=== PATIENT | female | born 1980 | race Caucasian/White ===

== ENCOUNTER 2021-01-09 14:28 | Outpatient (REF) | payer MEDICARE, MEDICAID, SELFPAY ==
[2021-01-09 14:59] LABS: MANUAL DIFF FLAG NO
[2021-01-09 15:02] LABS: Basophils Absolute Auto 0.1 X10*3/uL (0.0-0.2); Basophils Percent Auto 0.5 % (0-2); Eosinophils Absolute Auto 0.1 X10*3/uL (0.0-0.4); Hematocrit 37.7 % (37-47); Hemoglobin 12.5 g/dl (12.0-16.0); Imm Gran Abs Auto 0.03 X10*3/uL (0.00-0.03); Imm Gran Pct Auto 0.3 % (0.0-0.4); Lymphocytes Percent Auto 18.6 % (20-40); Mean Corpuscular HGB Conc 33.2 g/dl (31.0-35.0); Mean Corpuscular Hemoglobin 30.8 pg (27.0-33.0); Mean Corpuscular Volume 92.9 fL (80-98); Mean Platelet Volume 10.1 fL (9.4-12.3); Monocytes Absolute Auto 0.7 X10*3/uL (0.1-1.2); Monocytes Percent Auto 6.3 % (2-11); Neutrophils Absolute Auto 7.8 X10*3/uL (2.0-8.3); Neutrophils Percent Auto 73.3 % (45-73); Platelet Count 269 X10*3/uL (160-400); Red Blood Count 4.06 X10*6/uL (4.20-5.50); Red Cell Distribution Width 12.8 % (11.0-16.0); White Blood Count 10.6 X10*3/uL (4.8-10.8)
[2021-01-09 17:08] LABS: Valproate 13.3 mcg/mL (50.0-100.0)
[2021-01-09 18:36] LABS: Alanine Aminotransferase 18 U/L (0-31); Albumin Level 4.4 g/dL (3.5-5.0); Alkaline Phosphatase 73 U/L (39-117); Aspartate Amino Transferase 19 U/L (5-31); Bilirubin Direct < 0.2 mg/dL (0.0-0.5); Bilirubin Total 0.3 mg/dL (0.0-1.0); Total Protein 6.8 g/dL (6.5-8.0)
== END 2021-01-09 14:29 | disposition home or self-care (01) ==
LOC: HO.LAB 14:28
PROVIDERS: PCP Nurse Practitioner Family; Visit Provider Psychiatry & Neurology Psychiatry
DX: F31.81 Bipolar II disorder (principal)
CPT/HCPCS: 36415; 80076; 80164; 85025

== ENCOUNTER 2021-01-23 08:45 | Outpatient (RCR) | payer MEDICARE, MEDICAID, SELFPAY ==
[2020-12-21 12:21] VITALS: BMI 26.6
--- NOTE | 2020-12-21 12:45 | PC.ADMIT ---
Patient was initially at [facility] program however she stated she was discharged after a few days because she wanted to do a half day to celebrate her sons birthday. Patient self referred to [facility] as she continues to struggle with depression, passive SI, and anxiety with panic attacks. Feeling overwhelmed,and hopeless. Reports several days with in the past month of passive suicidal thoughts. Struggling with PTSD sxs. Patient has a dx of Bipolar I d/o, PTSD, OCD, AVANI. Patient presents with depressed mood and anxious affect. Denied current SI. Patient gave verbal permission to email her a copy of her safety plan. asked if she was feeling unsafe who could she contact and she stated her BF Dilshad. Patient reports medication changes within the past 2 months have contributed to her symptoms. Patient's medications reconciled with patient and patients pharmacy. Call placed to [facility] to reconcile Seroquel which patient stated increased to 100 mg BID.
--- NOTE | 2020-12-21 13:51 | P.HPPSP_ITS ---
HPI Chief Complaint: depression Sources of Information: patient interviewed, chart reviewed and crisis/core team assessment reviewed HPI Narrative: Pt is a 40 year-old woman with hx of Bipolar Disorder who was self referred to PHP due to increased depression, hopeless, helpless, anhedonia and passive suicidal ideation, although pt denies any plan or intent. Pt reports in past year she has been feeling increasingly more isolated, with increased anxiety. She reports poor sleep. She reports hx of multiple medications trials. She is also in process of switching psychiatric providers as pt reports she was told by her OP providers that pt would benefit from second opinion. Pt denies hx of VH/AH. She reports mood swings. She reports some periods of increased energy, but mostly reports changes during the day to day. Past Psychiatric History: Inpt: [facility] 2014 PHP: pt just finished one at [facility]. Suicide attempts: none Past medication trials: trileptal, seroquel, prazosin, latuda, lithium, depakote, prozac (increased agitation/explosive) Medical Evaluation Reviewed: Yes [facility] Medical History (Updated 12/24/20 @ 14:52 by Ivelisse Singh) GERD (gastroesophageal reflux disease) Surgical History (Updated 12/21/20 @ 12:20 by Shyann Ramos RN) H/O spinal fusion Diagnostics Vital Signs (24Hr): Body Mass Index 26.6 Meds/Allergies Allergies Allergies Allergy/AdvReac Type Severity Reaction Status Date / Time No Known Allergies Allergy Verified 12/21/20 12:20 [No Known Allergies*] Mental Status Exam Mental Status Exam Narrative: Appearance: casually groomed, fair hygiene, in NAD Behavior: calm, cooperative Psychomotor: no agitation or retardation noted Speech: clear, normal rate/rhythm/volume, spontaneous TP: linear TC: no signs of psychosis, hopeless/helpless Mood: anxious Affect:brighter than reported mood SI:passive no plan or intent HI:none AH/VH:none Delusions:none Insight/judgment:fair x 2. Memory/cog: alert, oriented x 3. grossly intact to conversational testing. Assessment & Plan Assessment & Plan (1) Bipolar 2 disorder, major depressive episode: Status: Acute Code(s): F31.81 - Bipolar II disorder Assessment and Plan: 1. We discussed continuing Trileptal 600mg po BID; Seroquel 100mg po BID; Latuda 80mg po dinner 2. Increase Prazosin 3mg po qhs as pt reports continued nightmares. Certification I certify that partial hospital treatment is medically necessary due to the symptoms and problems resulting from the patient's mental illness and the failure to treat the patient at the partial hospital level of care would likely result in the patient requiring inpatient psychiatric care which could not be prevented at a less intensive level of care. Telehealth Telehealth Location of provider rendering services: practice address Location of patient: address on file Patient Identification confirmed using: Name, : Yes Telehealth method: video Patient verbally consented to treatment: Yes Patient verbally consented to billing insurance company: Yes Patient informed of any privacy concerns related to visit: Yes Time spent with patient (mins): 30
--- NOTE | 2020-12-25 16:03 | HO.PHPPROGNO ---
Subjective Subjective Date of Service: 12/25/20 Reason For Visit: depression Interim History: Reports an increase in anxiety, feeling overwhelmed and overstimulated with mood cycling to extremes. States this is day 3 of PHP and she continues to struggle. Talking in group makes her feel panic sx, shakey, and dissociative, like I cannot feel a feeling . 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 Identifies her pattern as good ?high for 4 days then having 2 very low days. Night terrors have her up early-attempts to listen to music and work with [employer] to help with focus, grounding and relaxation, Reports by history risperdal caused hyperprolactinemia, Olanzapine was not effective, however Depakote did help. Denies current SE. Fit Bit monitors sleep-sleeps soundly for 4-5 hours, up by 2am 2-5 times then by 3-4 am up for the day. Appetite is within range. Denies SI, plan or intent, Denies medical issues, denies substance use. Medication Compliance: Yes Side effects from medications: No Attending Groups: Yes Review of Systems Review of Systems Yes all other systems are reviewed and are negative (denies) Psychiatric: Reports abnormal sleep pattern, Reports anxiety, Reports depression, Reports mood swings and Reports suicidal ideation (denies SI plan or intent) Mental Status Exam Mental Status Exam Patient Appearance: Appropriate Patient Orientation: Person, Place, Time and Situation Level of Consciousness: Alert Patient Behavior: Talkative Mood Description: Depressed and Anxious Affect Description: Flat Patient Cognition Impaired: No Ability to Follow Directions: Good Speech Pattern: Spontaneous Speech Memory Description: Intact Hallucinations: None Delusions: Not Present Thought Process: Intact Thought Content: positive for Intact Depressive Symptoms: Increased Anxiety, Difficulty Sleeping, Unhappiness, Thoughts of /Suicide (denies SI), Low Self Esteem, Loss of Energy and Difficulty Concentrating Judgement: Good Diagnostics Vital Signs (24Hr): Body Mass Index 26.6 Assessment & Plan Assessment & Plan (1) Bipolar 2 disorder, major depressive episode: Status: Acute Code(s): F31.81 - Bipolar II disorder Assessment and Plan: -Depakote 250 mg HS Certification I certify that partial hospital treatment is medically necessary due to the symptoms and problems resulting from the patient's mental illness and the failure to treat the patient at the partial hospital level of care would likely result in the patient requiring inpatient psychiatric care which could not be prevented at a less intensive level of care. Greater than 50% of the session was spent on counseling and/or coordination of care Discharge Plan Discharge Attending provider: Emery Lynn Medications: New prazosin 1 mg capsule 3 mg PO BEDTIME Qty: 14 RF: 0 Discontinued prazosin 1 mg Capsule 1 - 2 mg PO BEDTIME PRN (Reason: Sleep) RF: 0 No Action calcium 600 mg Capsule 600 mg PO DAILY RF: 0 ibuprofen 800 mg Tablet 800 mg PO DAILY PRN (Reason: Pain) RF: 0 clonazepam 0.5 mg Tablet 0.5 mg PO TID PRN (Reason: Anxiety) RF: 0 omeprazole 40 mg Capsule,Delayed Release(Dr/Ec) 40 mg PO BID RF: 0 quetiapine [Seroquel] 100 mg Tablet 100 mg PO BID RF: 0 vitamin E 400 unit Tablet 450 mg PO DAILY RF: 0 oxcarbazepine [Trileptal] 600 mg Tablet 600 mg PO BID RF: 0 vitamin B complex Capsule 1 cap PO DAILY RF: 0 Latuda 80 mg Tablet 80 mg PO DAILY@1700 RF: 0 Telehealth Telehealth Location of provider rendering services: practice address Location of patient: address on file Patient Identification confirmed using: Name, : Yes Telehealth method: video Patient verbally consented to treatment: Yes Patient verbally consented to billing insurance company: Yes Patient informed of any privacy concerns related to visit: Yes Time spent with patient (mins): 15
--- NOTE | 2020-12-26 14:13 | PC.NURSE ---
Spoke to patients prescriber Amanda Farris who stated she will continue to prescribe medications for patient until she has an appointment with a new prescriber. Patient is willing to go to an agency for treatment , Radha Mims is aware. Amanda reports that patient has told her that she has been vomiting on and off for 3 years and Amanda thinks medication is contributing to this and thus has tried to decrease patients medications however when this happens patient goes to [facility] and is put back on. Patient recently at [facility] at [facility] for a few days and was put back on Seroquel 100 mg BID. She was previously on Seroquel 150 mg daily. Patient left [facility] after 5 days as she knew an employee who worked there thus did not feel comfortable. Patient wanted to be put back on Seroquel as she feels the medication is helpful. In addition, patient was referred by her PCP to a GI doctor to f/u however patient did not go to the appointment. Spoke to patient and confirmed that she has been vomiting on and off x 3 years and related this to stress and anxiety, did not f/u with GI doctor. She agreed with the above plan to transition to an agency for treatment and agreed staff could call her PCP's office to re-refer patient to a GI specialist. Michael Santa APRN and Ivelisse Singh NP are aware.
--- NOTE | 2020-12-31 12:42 | PC.NURSE ---
Called Cassy and let her know that we need to cancel groups today as we lost power. In addition, patient has an appointment with her PCP Dr Nelly Zamora On January 04, 2021 at 1530 to f/u on patient c/o vomiting on and off for the past 3 years and to review the need to f/u with a GI referral.
--- NOTE | 2021-01-02 14:18 | HO.PHPPROGNO ---
Subjective Subjective Date of Service: 01/02/21 Reason For Visit: depression Interim History: The patient reported that the prescriber has just added Depakote last week on top of all her medications. Historically, she did well with Depakote. She reported that she is doing well with the current regimen. Medication Compliance: Yes Side effects from medications: No Review of Systems Review of Systems Yes all other systems are reviewed and are negative Mental Status Exam Mental Status Exam Patient Appearance: Well Grooomed Patient Orientation: Person, Place, Time and Situation Level of Consciousness: Awake and Appropriate Patient Behavior: Appropriate and Cooperative Mood Description: Calm Affect Description: Calm Patient Cognition Impaired: No Ability to Follow Directions: Good Speech Pattern: Clear Memory Description: Intact Hallucinations: None Delusions: Not Present Thought Process: Intact Thought Content: positive for Circumstantial Judgement: Fair Diagnostics Vital Signs (24Hr): Body Mass Index 26.6 Assessment & Plan Certification I certify that partial hospital treatment is medically necessary due to the symptoms and problems resulting from the patient's mental illness and the failure to treat the patient at the partial hospital level of care would likely result in the patient requiring inpatient psychiatric care which could not be prevented at a less intensive level of care. Greater than 50% of the session was spent on counseling and/or coordination of care Discharge Plan Discharge Attending provider: Emery Lynn Medications: New prazosin 1 mg capsule 3 mg PO BEDTIME Qty: 14 RF: 0 divalproex [Depakote] 250 mg tablet,delayed release (DR/EC) 250 mg PO BEDTIME Qty: 7 RF: 0 Discontinued prazosin 1 mg Capsule 1 - 2 mg PO BEDTIME PRN (Reason: Sleep) RF: 0 No Action calcium 600 mg Capsule 600 mg PO DAILY RF: 0 ibuprofen 800 mg Tablet 800 mg PO DAILY PRN (Reason: Pain) RF: 0 clonazepam 0.5 mg Tablet 0.5 mg PO TID PRN (Reason: Anxiety) RF: 0 omeprazole 40 mg Capsule,Delayed Release(Dr/Ec) 40 mg PO BID RF: 0 quetiapine [Seroquel] 100 mg Tablet 100 mg PO BID RF: 0 vitamin E 400 unit Tablet 450 mg PO DAILY RF: 0 oxcarbazepine [Trileptal] 600 mg Tablet 600 mg PO BID RF: 0 vitamin B complex Capsule 1 cap PO DAILY RF: 0 Latuda 80 mg Tablet 80 mg PO DAILY@1700 RF: 0 Telehealth Telehealth Location of provider rendering services: practice address Location of patient: address on file Patient Identification confirmed using: Name, : Yes Telehealth method: video Patient verbally consented to treatment: Yes Patient verbally consented to billing insurance company: Yes Patient informed of any privacy concerns related to visit: Yes Time spent with patient (mins): 15
--- NOTE | 2021-01-07 12:07 | PC.NURSE ---
Spoke with pt to try to offer support and service ideas due to family struggles.
--- NOTE | 2021-01-07 13:25 | HO.PHPPROGNO ---
Subjective Subjective Date of Service: 01/07/21 Reason For Visit: depression Interim History: The patient reported improvement of her mood on the subtherapeutic dose of DEpakote 250 mg po qhs. She agreed to do bloodwork and reasses Medication Compliance: Yes Side effects from medications: No Review of Systems Review of Systems Yes all other systems are reviewed and are negative Mental Status Exam Mental Status Exam Patient Appearance: Well Grooomed Patient Orientation: Person, Place and Time Level of Consciousness: Awake Patient Behavior: Appropriate Mood Description: Calm Affect Description: Constricted Patient Cognition Impaired: No Ability to Follow Directions: Good Speech Pattern: Clear Memory Description: Intact Hallucinations: None Delusions: Not Present Thought Process: Goal Oriented Thought Content: positive for Circumstantial Judgement: Fair Diagnostics Vital Signs (24Hr): Body Mass Index 26.6 Assessment & Plan Assessment & Plan (1) Bipolar 2 disorder, major depressive episode: Status: Acute Code(s): F31.81 - Bipolar II disorder Assessment and Plan: Continue with same treatment VALP and LFT NATY Certification I certify that partial hospital treatment is medically necessary due to the symptoms and problems resulting from the patient's mental illness and the failure to treat the patient at the partial hospital level of care would likely result in the patient requiring inpatient psychiatric care which could not be prevented at a less intensive level of care. Greater than 50% of the session was spent on counseling and/or coordination of care Discharge Plan Discharge Attending provider: Emery Lynn Medications: Continued prazosin 1 mg capsule 3 mg PO BEDTIME Qty: 90 RF: 0 divalproex [Depakote] 250 mg tablet,delayed release (DR/EC) 250 mg PO BEDTIME Qty: 30 RF: 0 Discontinued prazosin 1 mg Capsule 1 - 2 mg PO BEDTIME PRN (Reason: Sleep) RF: 0 No Action calcium 600 mg Capsule 600 mg PO DAILY RF: 0 ibuprofen 800 mg Tablet 800 mg PO DAILY PRN (Reason: Pain) RF: 0 clonazepam 0.5 mg Tablet 0.5 mg PO TID PRN (Reason: Anxiety) RF: 0 omeprazole 40 mg Capsule,Delayed Release(Dr/Ec) 40 mg PO BID RF: 0 quetiapine [Seroquel] 100 mg Tablet 100 mg PO BID RF: 0 vitamin E 400 unit Tablet 450 mg PO DAILY RF: 0 oxcarbazepine [Trileptal] 600 mg Tablet 600 mg PO BID RF: 0 vitamin B complex Capsule 1 cap PO DAILY RF: 0 Latuda 80 mg Tablet 80 mg PO DAILY@1700 RF: 0 Telehealth Telehealth Location of provider rendering services: practice address Location of patient: address on file Patient Identification confirmed using: Name, : Yes Telehealth method: video Patient verbally consented to treatment: Yes Patient verbally consented to billing insurance company: Yes Patient informed of any privacy concerns related to visit: Yes Time spent with patient (mins): 15
--- NOTE | 2021-01-15 13:19 | HO.PHPPROGNO ---
Subjective Subjective Date of Service: 01/15/21 Reason For Visit: depression Interim History: The patient reported stable mood even though that she is on a subtherapeutic dose of Depakote. VALP came back on 0.13. We discussed options and she agreed to increase it up to 500 mg at hs. Medication Compliance: Yes Side effects from medications: No Attending Groups: Yes Review of Systems Review of Systems Yes all other systems are reviewed and are negative Mental Status Exam Mental Status Exam Patient Appearance: Well Grooomed Patient Orientation: Person, Place, Time and Situation Level of Consciousness: Awake and Appropriate Patient Behavior: Appropriate Mood Description: Calm Affect Description: Appropriate Patient Cognition Impaired: No Ability to Follow Directions: Good Speech Pattern: Clear Memory Description: Intact Hallucinations: None Delusions: Not Present Thought Process: Goal Oriented Thought Content: positive for Intact Judgement: Fair Diagnostics Vital Signs (24Hr): Body Mass Index 26.6 Labs Labs: VALP on 0.13, LFT wnl, CBC wnl Assessment & Plan Assessment & Plan (1) Bipolar 2 disorder, major depressive episode: Status: Acute Code(s): F31.81 - Bipolar II disorder Assessment and Plan: 1. Increase Depakote ER 500 mg po qhs 2. Next visit VALP Certification I certify that partial hospital treatment is medically necessary due to the symptoms and problems resulting from the patient's mental illness and the failure to treat the patient at the partial hospital level of care would likely result in the patient requiring inpatient psychiatric care which could not be prevented at a less intensive level of care. Greater than 50% of the session was spent on counseling and/or coordination of care Discharge Plan Discharge Attending provider: Emery Lynn Medications: New divalproex [Depakote ER] 500 mg tablet extended release 24 hr 500 mg PO DAILY Qty: 14 RF: 0 Continued prazosin 1 mg capsule 3 mg PO BEDTIME Qty: 90 RF: 0 Discontinued prazosin 1 mg Capsule 1 - 2 mg PO BEDTIME PRN (Reason: Sleep) RF: 0 No Action calcium 600 mg Capsule 600 mg PO DAILY RF: 0 ibuprofen 800 mg Tablet 800 mg PO DAILY PRN (Reason: Pain) RF: 0 clonazepam 0.5 mg Tablet 0.5 mg PO TID PRN (Reason: Anxiety) RF: 0 omeprazole 40 mg Capsule,Delayed Release(Dr/Ec) 40 mg PO BID RF: 0 quetiapine [Seroquel] 100 mg Tablet 100 mg PO BID RF: 0 vitamin E 400 unit Tablet 450 mg PO DAILY RF: 0 oxcarbazepine [Trileptal] 600 mg Tablet 600 mg PO BID RF: 0 vitamin B complex Capsule 1 cap PO DAILY RF: 0 Latuda 80 mg Tablet 80 mg PO DAILY@1700 RF: 0 Telehealth Telehealth Location of provider rendering services: practice address Location of patient: address on file Patient Identification confirmed using: Name, : No Telehealth method: video Patient verbally consented to treatment: Yes Patient verbally consented to billing insurance company: Yes Patient informed of any privacy concerns related to visit: No Time spent with patient (mins): 15
--- NOTE | 2021-01-23 13:05 | PC.NURSE ---
Reviewed patient discharge medications with patient. Faxed d/c medication list to patients prescriber Amanda Farris including lab results. Lab results faxed to PCP. Patient had intake appointment with [facility] and she is transitioning to [facility] for all psychiatric services including prescriber services.
--- NOTE | 2021-01-23 13:43 | HO.PHPPROGNO ---
Subjective Subjective Date of Service: 01/23/21 Reason For Visit: depression Interim History: The patient is finishing her PHP, she feels much better and she thinks that she has benefit from the groups and the slow titration of Depakote. She reported that her regular prescriber will continue the depakote. No safety issues Medication Compliance: Yes Side effects from medications: No Attending Groups: Yes Review of Systems Review of Systems Yes all other systems are reviewed and are negative Mental Status Exam Mental Status Exam Patient Appearance: Well Grooomed Patient Orientation: Person, Place, Time and Situation Level of Consciousness: Awake and Appropriate Patient Behavior: Appropriate Mood Description: Calm Affect Description: Appropriate Patient Cognition Impaired: No Ability to Follow Directions: Good Speech Pattern: Clear Memory Description: Intact Hallucinations: None Delusions: Not Present Thought Process: Goal Oriented Thought Content: positive for Intact Judgement: Fair Diagnostics Vital Signs (24Hr): Body Mass Index 26.6 Assessment & Plan Assessment & Plan (1) Bipolar 2 disorder, major depressive episode: Status: Acute Code(s): F31.81 - Bipolar II disorder Assessment and Plan: The patient is an adult female with Bipolar Type 2, highly functional at baseline, referred to [facility] for medication management. She agreed to add Depakote and so far, her mood is more stable. Certification I certify that partial hospital treatment is medically necessary due to the symptoms and problems resulting from the patient's mental illness and the failure to treat the patient at the partial hospital level of care would likely result in the patient requiring inpatient psychiatric care which could not be prevented at a less intensive level of care. Greater than 50% of the session was spent on counseling and/or coordination of care Discharge Plan Discharge Attending provider: Emery Lynn Medications: Continued prazosin 1 mg capsule 3 mg PO BEDTIME Qty: 90 RF: 0 divalproex [Depakote ER] 500 mg tablet extended release 24 hr 500 mg PO DAILY Qty: 30 RF: 1 Discontinued prazosin 1 mg Capsule 1 - 2 mg PO BEDTIME PRN (Reason: Sleep) RF: 0 No Action calcium 600 mg Capsule 600 mg PO DAILY RF: 0 ibuprofen 800 mg Tablet 800 mg PO DAILY PRN (Reason: Pain) RF: 0 clonazepam 0.5 mg Tablet 0.5 mg PO TID PRN (Reason: Anxiety) RF: 0 omeprazole 40 mg Capsule,Delayed Release(Dr/Ec) 40 mg PO BID RF: 0 quetiapine [Seroquel] 100 mg Tablet 100 mg PO BID RF: 0 vitamin E 400 unit Tablet 450 mg PO DAILY RF: 0 oxcarbazepine [Trileptal] 600 mg Tablet 600 mg PO BID RF: 0 vitamin B complex Capsule 1 cap PO DAILY RF: 0 Latuda 80 mg Tablet 80 mg PO DAILY@1700 RF: 0 Telehealth Telehealth Location of provider rendering services: practice address Location of patient: address on file Patient Identification confirmed using: Name, : Yes Telehealth method: video Patient verbally consented to treatment: Yes Patient verbally consented to billing insurance company: Yes Patient informed of any privacy concerns related to visit: No Time spent with patient (mins): 15
--- NOTE | 2021-01-23 14:50 | PC.NURSE ---
Left message with clients therapist Gisele cope re clients discharge
== END 2021-01-24 08:06 ==
LOC: HO.PHPA 08:45
PROVIDERS: Visit Provider Psychiatry & Neurology Psychiatry
DX: F31.81 Bipolar II disorder (principal); Z79.899 Other long term (current) drug therapy
CPT/HCPCS: 90791; 90853; 99213

== ENCOUNTER 2022-02-13 09:45 | Outpatient (RCR) | payer MEDICARE, MEDICAID, SELFPAY ==
[2022-01-13 11:49] VITALS: BMI 25.7
--- NOTE | 2022-01-13 12:10 | PC.ADMIT ---
Patient is a 41 year old female who has a diagnosis of Bipolar disorder, current mood depressed who self referred to PHP d/t increased depression with passive SI, increased anxiety with panic attacks, and PTSD symptoms. Patient reports feeling overwhelmed with issues with her step son and has an upcoming court date regarding her step son. Patient reports that her step son triggers her past trauma history. Patient also stated she is in the process of buying a new house and is moving at the end of April which she finds stressful. Patient also stated she is dealing with health issues related to [place] Esophagus and has upcoming appointments related to this and possible upcoming throat surgery which is also stressful. Patient has been to [facility] in the past and found it helpful. Patient is alert and oriented x4. calm and cooperative. Presents with depressed mood, tearful at times. Emailed patient a copy of her safety plan and smoking cessation materials. Patient's medications reconciled with patient and patient's pharmacy. patient reports taking medications as prescribed.
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
--- NOTE | 2022-01-14 07:21 | PC.NURSE ---
Case opened in treatment team
--- NOTE | 2022-01-15 08:30 | PC.NURSE ---
The client called out . She states that yesterday was stressful and she has a migraine headache
--- NOTE | 2022-01-22 11:16 | P.PNPSP_ITS ---
Subjective Subjective Date of Service: 01/22/22 Reason For Visit: PTSD,depression Guardianship: No Medical Problems Affecting Mental Status: No Interim History: Describes mood as ?I have been quite emotional, ranging from feeling overwhelmed , to completely shutting down ?. Denies SI/HI. Reports forcing herself to process trauma from the past, and current situation. Reports she feels safe. does not wish to have any medication changes at this time. Medication Compliance: Yes Side effects from medications: No Attending Groups: Yes Review of Systems Acute medical concerns: No Medical Review of Systems: unchanged Review of Systems Review of Systems Yes all other systems are reviewed and are negative Constitutional: Reports no additional constitutional complaints Mental Status Exam Mental Status Exam Narrative: A&OX4, in NAD. Describes mood as ranging from overwhelming to completely shutting down . Denies SI/HI. Patient Appearance: Well Grooomed and Appropriate Patient Orientation: Person, Place, Time and Situation Level of Consciousness: Awake, Appropriate and Alert Patient Behavior: Appropriate, Cooperative and Good Eye Contact Mood Description: Depressed and Anxious Affect Description: Depressed and Anxious Patient Cognition Impaired: No Ability to Follow Directions: Excellent Speech Pattern: Clear, Appropriate and Coherent Memory Description: Intact Hallucinations: None Delusions: Not Present Thought Process: Intact Thought Content: positive for Intact Depressive Symptoms: Increased Anxiety, Increased Irritability, Difficulty Sleeping, Crying Spells, Loss of Int. in Activity, Feelings of Worthlessness, Hopelessness, Unhappiness, Increased Fatigue and Loss of Energy Judgement: Fair Diagnostics Vital Signs (24Hr): BMI result Body Mass Index 25.7 Assessment & Plan Assessment & Plan (1) Bipolar 2 disorder, major depressive episode: Status: Acute Code(s): F31.81 - Bipolar II disorder Assessment and Plan: Describes mood as ?I have been quite emotional, ranging from feeling overwhelmed, to completely shutting down ?. Reports that topics in groups have brought up past trauma as well as current situation. She reports that for a long time she had ?been shut down ?. She states that she is currently trying to pop process her feelings while in the safety of [facility]. She states that this was the intent of her participating in partial, so that she can work through these and be able to function ?without wearing a mask ?. Denies SI/HI. Reports she feels safe. does not wish to have any medication changes at this time, feels they are adequate. Patient was encouraged to reach out if needs any assistance. Medication review/education provided. (2) Post-traumatic stress disorder, chronic: Status: Acute Code(s): F43.12 - Post-traumatic stress disorder, chronic (3) Generalized anxiety disorder: Status: Acute Code(s): F41.1 - Generalized anxiety disorder Plan 1. Continue with current PHP plan of care. 2. Continue with current medication regimen as prescribed. 3. Follow-up as per protocol. Patient educated on: diagnosis, medication risk/benefits and therapeutic strategies Informed Consent: understands Reason for contiued partial hosp. stay Substantial Risk for: harm to self, inability to function and med/psych decompensation Certification I certify that partial hospital treatment is medically necessary due to the symptoms and problems resulting from the patient's mental illness and the failure to treat the patient at the partial hospital level of care would likely result in the patient requiring inpatient psychiatric care which could not be prevented at a less intensive level of care. I spent minutes with the patient and/or on the patient floor today, greater than?50% of which was spent counseling/coordinating care. Discharge Plan Discharge Attending provider: Sam Lipscomb Medications: No Action calcium 600 mg Capsule 600 mg PO DAILY 0RF ibuprofen 800 mg Tablet 800 mg PO DAILY PRN (Reason: Pain) 0RF Label Comments: Patient stated she takes once a week. clonazepam 0.5 mg Tablet 0.5 mg PO TID PRN (Reason: Anxiety) 0RF quetiapine [Seroquel] 100 mg Tablet 100 mg PO BID 0RF vitamin E 400 unit Tablet 450 mg PO DAILY 0RF oxcarbazepine [Trileptal] 600 mg Tablet 600 mg PO BID 0RF vitamin B complex Capsule 1 cap PO DAILY 0RF prazosin 1 mg capsule 3 mg PO BEDTIME Qty: 90 0RF famotidine 40 mg Tablet 40 mg PO BEDTIME 0RF sumatriptan succinate 50 mg Tablet See Rx Instructions .ROUTE .COMPLEX PRN (Reason: Migraine Headache) 0RF Rx Instructions: 1-2 tabs onset of migraine. May Repeat in 2 hours if ineffective. Do not exceed 4 doses per 24 hrs. Max 9 tabs in 30 days. divalproex [Depakote] 125 mg Tablet,Delayed Release (Dr/Ec) 375 mg PO BEDTIME 0RF Rx Instructions: Take 3 tabs at Bedtime. omeprazole 20 mg Capsule,Delayed Release(Dr/Ec) 20 mg PO BID 0RF albuterol sulfate 90 mcg/actuation Hfa Aerosol Inhaler 2 puff INHALATION Q4H PRN (Reason: Shortness Of Breath) 0RF Latuda 60 mg Tablet 60 mg PO QPM 0RF Rx Instructions: must administer with food (at least 350 calories). Take at dinnertime. baclofen 5 mg Tablet 5 mg PO TID 0RF Telehealth Telehealth Location of provider rendering services: practice address Location of patient: address on file Patient Identification confirmed using: Name, : Yes Telehealth method: video Patient verbally consented to treatment: Yes Patient verbally consented to billing insurance company: Yes Patient informed of any privacy concerns related to visit: Yes Minutes spent on Phone/Video with Pt.: 15
--- NOTE | 2022-01-24 12:37 | PC.NURSE ---
I spoke with the clients therapist Kim DAS re clients progress in the program and length of the treatment. Kim will be calling [facility] to set up an appointment for post discharge
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
--- NOTE | 2022-02-06 12:13 | PC.NURSE ---
The client left the first group and called to tell me she is too overwhelmed to stay the rest of the day. We discussed using skills and she agreed to take a nap with her weighted blanket. She denies any safety concerns. She will also be calling to touch base with her therapist. She states that she will be in tomorrow.
--- NOTE | 2022-02-12 10:55 | HO.PHPPROGNO ---
Subjective Subjective Date of Service: 02/12/22 Reason For Visit: PTSD,depression Guardianship: No Medical Problems Affecting Mental Status: No Interim History: Mood: actually pretty good . Feels ready to leave [facility], I'm not at 100%, but I have the motivation to keep going forward . Plans to resume old dose of prazosin 3mg at bedtime rather than 4mg. No SI/HI, no safety concerns. Medication Compliance: Yes Side effects from medications: No Attending Groups: Yes Review of Systems Acute medical concerns: No Medical Review of Systems: unchanged Review of Systems Review of Systems Yes all other systems are reviewed and are negative Constitutional: Reports no additional constitutional complaints Mental Status Exam Mental Status Exam Narrative: NAD. Stable mood/affect. Denies SI/HI. Patient Appearance: Well Grooomed and Appropriate Patient Orientation: Person, Place, Time and Situation Level of Consciousness: Awake, Appropriate and Alert Patient Behavior: Appropriate, Cooperative and Good Eye Contact Mood Description: Appropriate Affect Description: Calm and Appropriate Patient Cognition Impaired: No Ability to Follow Directions: Excellent Speech Pattern: Clear, Appropriate and Coherent Memory Description: Intact Hallucinations: None Delusions: Not Present Thought Process: Intact Thought Content: positive for Intact Depressive Symptoms: Increased Anxiety Judgement: Good Diagnostics Vital Signs (24Hr): BMI result Body Mass Index 25.7 Assessment & Plan Assessment & Plan (1) Bipolar 2 disorder, major depressive episode: Status: Acute Code(s): F31.81 - Bipolar II disorder Assessment and Plan: Mood: actually pretty good . States that she feels less anxious, less depressed. States that she understands she is not 100% where she would prefer to be at this time, she says that she has the motivation out acute going forward. Reports that she has noticed improvement in her relationship with her significant other, stating that she has been able to speak up for herself more, ?expressing my feelings more ?. She describes her relationship with her partner is healthy, and states that he has been more receptive to listening about her feelings. States that she feels her children are also doing better, as her symptoms have improved. Feels ready to leave [facility]. Plans to resume old dose of prazosin 3mg at bedtime rather than 4mg. No SI/HI, no safety concerns. Able to express hope for the future. (2) Post-traumatic stress disorder, chronic: Status: Acute Code(s): F43.12 - Post-traumatic stress disorder, chronic Assessment and Plan: Reports symptoms of PTSD, including nightmares, irritability, hyperarousal and hypervigilance have improved. Plans to resume past dose of prazosin 3 mg at bedtime, as she feels she no longer needs the 4 mg. (3) Generalized anxiety disorder: Status: Acute Code(s): F41.1 - Generalized anxiety disorder Assessment and Plan: Was able to verbalize some anticipatory anxiety regarding her upcoming move this summer into their new home. She reports however that she feels ready to meet the challenges of this. She states she also knows where to turn if she starts to feel herself becoming overwhelmed again. She states that she would be open to returning if needed here. Plan 1. Patient appears stable for discharge from [facility] at this time. 2. Patient to follow-up without patient providers going forward. Patient educated on: diagnosis and therapeutic strategies Informed Consent: understands Reason for contiued partial hosp. stay Substantial Risk for: stable for discharge Certification I certify that partial hospital treatment is medically necessary due to the symptoms and problems resulting from the patient's mental illness and the failure to treat the patient at the partial hospital level of care would likely result in the patient requiring inpatient psychiatric care which could not be prevented at a less intensive level of care. I spent minutes with the patient and/or on the patient floor today, greater than?50% of which was spent counseling/coordinating care. Discharge Plan Discharge Attending provider: Sam Lipscomb Medications: New prazosin 1 mg capsule 1 mg PO BEDTIME 7 Days Qty: 7 0RF Rx Instructions: Take in addition to prazosin 3mg at bedtime, for total daily dose of 4mg at bedtime No Action calcium 600 mg Capsule 600 mg PO DAILY 0RF ibuprofen 800 mg Tablet 800 mg PO DAILY PRN (Reason: Pain) 0RF Label Comments: Patient stated she takes once a week. clonazepam 0.5 mg Tablet 0.5 mg PO TID PRN (Reason: Anxiety) 0RF quetiapine [Seroquel] 100 mg Tablet 100 mg PO BID 0RF vitamin E 400 unit Tablet 450 mg PO DAILY 0RF oxcarbazepine [Trileptal] 600 mg Tablet 600 mg PO BID 0RF vitamin B complex Capsule 1 cap PO DAILY 0RF prazosin 1 mg capsule 3 mg PO BEDTIME Qty: 90 0RF famotidine 40 mg Tablet 40 mg PO BEDTIME 0RF sumatriptan succinate 50 mg Tablet See Rx Instructions .ROUTE .COMPLEX PRN (Reason: Migraine Headache) 0RF Rx Instructions: 1-2 tabs onset of migraine. May Repeat in 2 hours if ineffective. Do not exceed 4 doses per 24 hrs. Max 9 tabs in 30 days. divalproex [Depakote] 125 mg Tablet,Delayed Release (Dr/Ec) 375 mg PO BEDTIME 0RF Rx Instructions: Take 3 tabs at Bedtime. omeprazole 20 mg Capsule,Delayed Release(Dr/Ec) 20 mg PO BID 0RF albuterol sulfate 90 mcg/actuation Hfa Aerosol Inhaler 2 puff INHALATION Q4H PRN (Reason: Shortness Of Breath) 0RF Latuda 60 mg Tablet 60 mg PO QPM 0RF Rx Instructions: must administer with food (at least 350 calories). Take at dinnertime. baclofen 5 mg Tablet 5 mg PO TID 0RF Telehealth Telehealth Location of provider rendering services: practice address Location of patient: address on file Patient Identification confirmed using: Name, : Yes Telehealth method: voice only (had difficulty with computer volume, switched to phone over several minutes.) Patient verbally consented to treatment: Yes Patient verbally consented to billing insurance company: Yes Patient informed of any privacy concerns related to visit: Yes Minutes spent on Phone/Video with Pt.: 15
--- NOTE | 2022-02-21 14:07 | PC.NURSE ---
Discharge Note: Patient discharge on 02/13/2022. Routine discharge. Discharge to out patient providers. Discharge packet faxed to out patient providers. Patient states ready for discharge. Patient verbalizes understanding of discharge plan
== END 2022-02-13 23:59 | disposition home or self-care (01) ==
LOC: HO.PHPA 09:45
PROVIDERS: Visit Provider Psychiatry & Neurology Psychiatry
DX: F31.81 Bipolar II disorder (principal); F43.12 Post-traumatic stress disorder, chronic; F41.1 Generalized anxiety disorder; Z79.899 Other long term (current) drug therapy
CPT/HCPCS: 90791; 90853

== ENCOUNTER 2023-02-13 09:30 | Outpatient (RCR) | payer OTHER, SELFPAY ==
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
[2023-01-12 12:53] VITALS: BMI 32.1
[2023-01-12 12:55] VITALS: BP 108/68; PULSE 84; TEMP 37.1
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
--- NOTE | 2023-01-16 08:18 | HO.PHP ---
The clients case was reviewed and opened in treatment team
--- NOTE | 2023-01-20 11:21 | HO.PHPPROGNO ---
Subjective Subjective Date of Service: 01/20/23 Reason For Visit: PTSD,depression Medical Problems Affecting Mental Status: No Interim History: Describes mood as ?I feel shut down?. Tearful, passive SI. No intent or plan. States ?I do not know what I am supposed to focus on here ?. Medication Compliance: Yes Side effects from medications: No Attending Groups: Yes Review of Systems Acute medical concerns: No Medical Review of Systems: unchanged Review of Systems Review of Systems Yes all other systems are reviewed and are negative Constitutional: Reports no additional constitutional complaints Mental Status Exam Mental Status Exam Patient Appearance: Appropriate Patient Orientation: Person, Place, Time and Situation Level of Consciousness: Appropriate Patient Behavior: Appropriate, Good Eye Contact and Crying Mood Description: Depressed and Anxious Affect Description: Depressed and Anxious Patient Cognition Impaired: No Ability to Follow Directions: Excellent Speech Pattern: Clear Memory Description: Intact Hallucinations: None Delusions: Not Present Thought Process: Intact Thought Content: positive for Intact and positive for Suicidal Ideation (passive, no intent/plan) Depressive Symptoms: Increased Anxiety, Increased Irritability, Difficulty Sleeping, Loss of Int. in Activity, Hopelessness, Isolating-Friends/Family, Unhappiness, Thoughts of /Suicide and Low Self Esteem Judgement: Fair Diagnostics Vital Signs (24Hr): BMI result Body Mass Index 32.1 Assessment & Plan Assessment & Plan (1) Bipolar 2 disorder, major depressive episode: Status: Acute Code(s): F31.81 - Bipolar II disorder Assessment and Plan: Continues with depressed mood an affect. And tearful. Passive SI, no intent or plan. States that she feels safe. Reports hopelessness, that she does not feel she will ever get better. Does not want any medication changes at this time. Expresses frustration over being in program again. Active listening, support offered. (2) Post-traumatic stress disorder, chronic: Status: Acute Code(s): F43.12 - Post-traumatic stress disorder, chronic (3) Generalized anxiety disorder: Status: Acute Code(s): F41.1 - Generalized anxiety disorder Plan 1. Continue with current [facility] plan of care. 2. Continue to monitor for decompensation and any potential safety concerns. 3. Follow-up as per protocol. 4. Plan to Explore possibility of Spravato or ECT with patient. Patient educated on: diagnosis, medication risk/benefits and therapeutic strategies Informed Consent: understands Reason for contiued partial hosp. stay Substantial Risk for: harm to self, inability to function and rapid decompensation Certification I certify that partial hospital treatment is medically necessary due to the symptoms and problems resulting from the patient's mental illness and the failure to treat the patient at the partial hospital level of care would likely result in the patient requiring inpatient psychiatric care which could not be prevented at a less intensive level of care. Total time managing care of this patient today ___20_ minutes. Discharge Plan Discharge Attending provider: Sam Lipscomb Medications: No Action calcium 600 mg Capsule 600 mg PO DAILY ibuprofen 800 mg Tablet 800 mg PO TID PRN (Reason: Pain) Patient Comments: Patient stated she takes once a week. clonazepam 0.5 mg Tablet 0.5 mg PO TID PRN (Reason: Anxiety) quetiapine [Seroquel] 100 mg Tablet 100 mg PO BID vitamin E 400 unit Tablet 450 mg PO DAILY oxcarbazepine [Trileptal] 600 mg Tablet 600 mg PO BID vitamin B complex Capsule 1 cap PO DAILY prazosin 1 mg capsule 3 mg PO BEDTIME Qty: 90 0RF famotidine 40 mg Tablet 40 mg PO BEDTIME sumatriptan succinate 50 mg Tablet See Rx Instructions .ROUTE .COMPLEX PRN (Reason: Migraine Headache) Rx Instructions: 1-2 tabs onset of migraine. May Repeat in 2 hours if ineffective. Do not exceed 4 doses per 24 hrs. Max 9 tabs in 30 days. divalproex [Depakote] 125 mg Tablet,Delayed Release (Dr/Ec) 375 mg PO BEDTIME Rx Instructions: Take 3 tabs at Bedtime. omeprazole 20 mg Capsule,Delayed Release(Dr/Ec) 20 mg PO BID albuterol sulfate 90 mcg/actuation Hfa Aerosol Inhaler 2 puff INHALATION Q4H PRN (Reason: Shortness Of Breath) magnesium oxide 400 mg (241.3 mg magnesium) tablet 400 mg PO DAILY
--- NOTE | 2023-02-03 11:33 | HO.PHPPROGNO ---
Subjective Subjective Date of Service: 02/03/23 Reason For Visit: PTSD,depression Medical Problems Affecting Mental Status: No Interim History: Reports OCD issues, focuses on placement of objects at home, ways things are cleaned, etc.. Describes obsessional thoughts, intrusive at times regarding this. States that when they are not exact, she becomes overwhelmed, easily irritated, labile. Describes symptoms of hyperarousal/hypervigilance. Would like medication adjustment, would prefer to hold off on adding a new medication, would instead be interested in discussing current meds and doses. No SI reported, no safety concerns. Medication Compliance: Yes Side effects from medications: No Attending Groups: Yes Review of Systems Acute medical concerns: No Medical Review of Systems: unchanged Review of Systems Review of Systems Yes all other systems are reviewed and are negative Constitutional: Reports no additional constitutional complaints Mental Status Exam Mental Status Exam Patient Appearance: Appropriate Patient Orientation: Person, Place, Time and Situation Level of Consciousness: Appropriate Patient Behavior: Appropriate and Good Eye Contact Mood Description: Anxious Affect Description: Anxious Patient Cognition Impaired: No Ability to Follow Directions: Excellent Speech Pattern: Clear Memory Description: Intact Hallucinations: None Delusions: Not Present Thought Process: Intact Thought Content: positive for Intact Depressive Symptoms: Increased Anxiety, Increased Irritability, Difficulty Sleeping, Loss of Int. in Activity, Hopelessness, Isolating-Friends/Family, Unhappiness and Low Self Esteem Judgement: Fair Diagnostics Vital Signs (24Hr): BMI result Body Mass Index 32.1 Assessment & Plan Assessment & Plan (1) Bipolar 2 disorder, major depressive episode: Status: Acute Code(s): F31.81 - Bipolar II disorder Assessment and Plan: Reports OCD issues, focuses on placement of objects at home, ways things are cleaned, etc.. Describes obsessional thoughts, intrusive at times regarding this. States that when they are not exact, she becomes overwhelmed, easily irritated, labile. Describes symptoms of hyperarousal/hypervigilance. Would like medication adjustment, would prefer to hold off on adding a new medication, would instead be interested in discussing current meds and doses. We discussed various medication options. Discussed adding daytime dose of prazosin, in order to help with hyperarousal/hypervigilance, feeling overwhelmed at times. Also discussed possibility of increasing Depakote to adding a small daytime dose, in order to help with mood lability. Another possibility discussed was adding a small daytime scheduled or p.r.n. dose of her Seroquel. Each medication was discussed in detail, including indications of use, adverse effects both minimal and more serious. She was agreeable at this time to adding 1 mg prazosin during day. Will continue with regular scheduled dose of prazosin at night 3 mg. Has had some nightmares, but states that she is usually stable with the 3 mg at bedtime. Reviewed blood pressure parameters. No SI reported, no safety concerns. (2) Post-traumatic stress disorder, chronic: Status: Acute Code(s): F43.12 - Post-traumatic stress disorder, chronic (3) Generalized anxiety disorder: Status: Acute Code(s): F41.1 - Generalized anxiety disorder Plan 1. Continue with current [facility] plan of care. 2. Add prazosin 1 mg daily during morning. Patient has a supply at home, does not need a script at this time. 3. Continue with all other medications as prescribed by outpatient provider. 4. Follow-up as needed/per protocol. Patient educated on: diagnosis, medication risk/benefits and therapeutic strategies Informed Consent: understands Reason for contiued partial hosp. stay Substantial Risk for: harm to self, inability to function, rapid decompensation and med/psych decompensation Certification I certify that partial hospital treatment is medically necessary due to the symptoms and problems resulting from the patient's mental illness and the failure to treat the patient at the partial hospital level of care would likely result in the patient requiring inpatient psychiatric care which could not be prevented at a less intensive level of care. Total time managing care of this patient today __20__ minutes. Discharge Plan Discharge Attending provider: Sam Lipscomb Medications: No Action calcium 600 mg Capsule 600 mg PO DAILY ibuprofen 800 mg Tablet 800 mg PO TID PRN (Reason: Pain) Patient Comments: Patient stated she takes once a week. clonazepam 0.5 mg Tablet 0.5 mg PO TID PRN (Reason: Anxiety) quetiapine [Seroquel] 100 mg Tablet 100 mg PO BID vitamin E 400 unit Tablet 450 mg PO DAILY oxcarbazepine [Trileptal] 600 mg Tablet 600 mg PO BID vitamin B complex Capsule 1 cap PO DAILY prazosin 1 mg capsule 3 mg PO BEDTIME Qty: 90 0RF famotidine 40 mg Tablet 40 mg PO BEDTIME sumatriptan succinate 50 mg Tablet See Rx Instructions .ROUTE .COMPLEX PRN (Reason: Migraine Headache) Rx Instructions: 1-2 tabs onset of migraine. May Repeat in 2 hours if ineffective. Do not exceed 4 doses per 24 hrs. Max 9 tabs in 30 days. divalproex [Depakote] 125 mg Tablet,Delayed Release (Dr/Ec) 375 mg PO BEDTIME Rx Instructions: Take 3 tabs at Bedtime. omeprazole 20 mg Capsule,Delayed Release(Dr/Ec) 20 mg PO BID albuterol sulfate 90 mcg/actuation Hfa Aerosol Inhaler 2 puff INHALATION Q4H PRN (Reason: Shortness Of Breath) magnesium oxide 400 mg (241.3 mg magnesium) tablet 400 mg PO DAILY
--- NOTE | 2023-02-04 15:58 | HO.PHP ---
[facility] staff followed up with Cassy after group three due to a comment that she had made regarding wanting to harm others if she is unable to harm herself. [facility] staff explored if there are any potential safety concerns. Cassy informed the staff that she had thoughts but has no plan on acting on those thoughts. Cassy was expressing a lot of emotions and noted feeling triggered by a group member. Cassy talked about how she feels guilty and blames herself for giving her child mental health issues. Cassy talked about the struggles she is enduring at home with her younger son and what he has been struggling with at school around bullying. [facility] staff provided Cassy with resources for the crisis hotline for her son and an educational advocate. Cassy was appreciating. Cassy talked about her fears and anxiety around sharing why she is here. Cassy was able to voice that she is going to try to discuss in group tomorrow. Cassy was able to regulate and participate in the next group appropriately.
[2023-02-05 11:44] VITALS: BP 98/60; PULSE 76
--- NOTE | 2023-02-13 12:06 | P.PNPSP_ITS ---
Subjective Subjective Date of Service: 02/13/23 Reason For Visit: PTSD,depression Medical Problems Affecting Mental Status: No Interim History: Increased anxiety, panic attacks. States I have just started to touch the surface of trauma . Not finding daytime prazosin helpful. No SI, no safety concerns. Medication Compliance: Yes Side effects from medications: No Attending Groups: Yes Review of Systems Acute medical concerns: No Medical Review of Systems: unchanged Review of Systems Review of Systems Yes all other systems are reviewed and are negative Constitutional: Reports no additional constitutional complaints Mental Status Exam Mental Status Exam Patient Appearance: Appropriate Patient Orientation: Person, Place, Time and Situation Level of Consciousness: Appropriate Patient Behavior: Appropriate, Anxious and Good Eye Contact Mood Description: Anxious Affect Description: Anxious Patient Cognition Impaired: No Ability to Follow Directions: Excellent Speech Pattern: Clear Memory Description: Intact Hallucinations: None Delusions: Not Present Thought Process: Intact Thought Content: positive for Intact Depressive Symptoms: Increased Anxiety, Difficulty Sleeping, Loss of Int. in Activity, Isolating-Friends/Family and Unhappiness Judgement: Good Diagnostics Vital Signs (24Hr): BMI result Body Mass Index 32.1 Assessment & Plan Assessment & Plan (1) Bipolar 2 disorder, major depressive episode: Status: Acute Code(s): F31.81 - Bipolar II disorder Assessment and Plan: Increased anxiety, panic attacks. States I have just started to touch the surface of trauma . Not finding daytime prazosin helpful. We discussed treatment options, including stopping the added daytime prazosin dose. Increasing nighttime dose to 4 mg, as she continues with difficulty sleeping, nightmares related to past trauma. Also discussed trialing low-dose Depakote during day, to help manage symptoms. She was in agreement with this plan. Patient was encouraged to ask her primary care provider, who currently prescribes her med, to reach out to their practice psychiatrist, for a review and further recommendations going forward as outpatient. Patient currently looking for trauma group. We also discussed possible treatment options, such as trauma/PTSD residential treatment programs. Patient states she will research these with her . No SI, no safety concerns. Patient to be discharged from [facility] today. States that although she does not feel stabilized at this time, she understands that she needs to continue treatment either in outpatient setting, or a [facility] treatment program. (2) Post-traumatic stress disorder, chronic: Status: Acute Code(s): F43.12 - Post-traumatic stress disorder, chronic (3) Generalized anxiety disorder: Status: Acute Code(s): F41.1 - Generalized anxiety disorder Plan 1. Stop the am dose of prazosin 1mg. 2. Add depakote 125mg daily in am. 3. Patient to follow-up with outpatient providers upon discharge. 4. Patient denies SI/HI, appears stable for discharge from [facility] today. Patient educated on: diagnosis, medication risk/benefits and therapeutic strategies Informed Consent: understands Reason for contiued partial hosp. stay Substantial Risk for: stable for discharge Certification I certify that partial hospital treatment is medically necessary due to the symptoms and problems resulting from the patient's mental illness and the failure to treat the patient at the partial hospital level of care would likely result in the patient requiring inpatient psychiatric care which could not be prevented at a less intensive level of care. Total time managing care of this patient today __20__ minutes. Discharge Plan Discharge Attending provider: Sam Lipscomb Medications: New prazosin 1 mg capsule 4 mg PO BEDTIME Qty: 120 0RF divalproex [Depakote] 125 mg tablet,delayed release (DR/EC) 125 mg PO .Daily in morning Qty: 30 0RF Discontinued prazosin 1 mg capsule 3 mg PO BEDTIME Qty: 90 0RF No Action calcium 600 mg Capsule 600 mg PO DAILY ibuprofen 800 mg Tablet 800 mg PO TID PRN (Reason: Pain) Patient Comments: Patient stated she takes once a week. clonazepam 0.5 mg Tablet 0.5 mg PO TID PRN (Reason: Anxiety) quetiapine [Seroquel] 100 mg Tablet 100 mg PO BID vitamin E 400 unit Tablet 450 mg PO DAILY oxcarbazepine [Trileptal] 600 mg Tablet 600 mg PO BID vitamin B complex Capsule 1 cap PO DAILY famotidine 40 mg Tablet 40 mg PO BEDTIME sumatriptan succinate 50 mg Tablet See Rx Instructions .ROUTE .COMPLEX PRN (Reason: Migraine Headache) Rx Instructions: 1-2 tabs onset of migraine. May Repeat in 2 hours if ineffective. Do not exceed 4 doses per 24 hrs. Max 9 tabs in 30 days. divalproex [Depakote] 125 mg Tablet,Delayed Release (Dr/Ec) 375 mg PO BEDTIME Rx Instructions: Take 3 tabs at Bedtime. omeprazole 20 mg Capsule,Delayed Release(Dr/Ec) 20 mg PO BID albuterol sulfate 90 mcg/actuation Hfa Aerosol Inhaler 2 puff INHALATION Q4H PRN (Reason: Shortness Of Breath) magnesium oxide 400 mg (241.3 mg magnesium) tablet 400 mg PO DAILY Stand Alone Forms: Patient Portal Discharge page Patient Education: Bipolar Disorder (DC), Post Traumatic Stress Disorder (DC)
--- NOTE | 2023-02-18 07:54 | HO.PHP ---
I attempted to leave a message with the clients therapist Kim DAS . Her mailbox was full therefore I could not
== END 2023-02-13 23:59 | disposition home or self-care (01) ==
LOC: HO.PHPA 09:30
PROVIDERS: Visit Provider Psychiatry & Neurology Psychiatry
DX: F31.81 Bipolar II disorder (principal); F43.12 Post-traumatic stress disorder, chronic; F41.1 Generalized anxiety disorder
CPT/HCPCS: 90791; 90853

== ENCOUNTER 2023-02-27 21:13 | Inpatient (IN) | payer OTHER, SELFPAY ==
[2023-02-27 21:54] VITALS: BMI 32.4
--- NOTE | 2023-02-27 22:34 | PC.ADMIT ---
Pt is 42 years old female admitted for depression and increased anxiety. Pt endorse SI and reports that she had thought about taking all meds to go to sleep and never wake up . Pt is a transfer from [facility]. Pt is alert and oriented X3, Covid negative, Tox screen positive for THC, Pt denies AH,VH. Endorses increased anxiety, depression and SI. Pt was accompanied by her fiance who has been her support system. During admission pt was tearful, hopeless and frustrated. Speech is normal with regular tone and rhythm. Pt reports that she tends to pick her fingers when anxiety becomes overwhelming. Admission orders obtained.
[2023-02-28 07:39] LABS: Estimated Average Glucose 100 mg/dL; Hemoglobin A1c % 5.1 %
[2023-02-28 07:49] LABS: Alanine Aminotransferase 20 U/L (0-31); Albumin Level 4.2 g/dL (3.5-5.0); Alkaline Phosphatase 68 U/L (39-117); Anion Gap 10 (12-20); Aspartate Amino Transferase 15 U/L (5-31); Bilirubin Direct 0.2 mg/dL (0.0-0.5); Bilirubin Total 0.5 mg/dL (0.0-1.0); Blood Urea Nitrogen 11 mg/dL (9-16); Calcium 9.4 mg/dL (8.4-10.2); Carbon Dioxide 29 mmol/L (22-29); Chloride 107 mmol/L (96-108); Cholesterol 185 mg/dL; Creatinine Clr Calc Pharmacy 114.9; Estimated Glomerular Filt Rate > 60; Glucose Fasting 107 mg/dL (60-99); HDL Cholesterol 58 mg/dL; LDL Cholesterol Calculated 112 mg/dl; Potassium 4.8 mmol/L (3.3-5.1); Sodium 141 mmol/L (135-145); Total Protein 6.7 g/dL (6.5-8.0); Triglycerides 79 mg/dL
[2023-02-28 08:17] LABS: Folate 17.8 ng/mL (> or = 4.0); Free T4 (Free Thyroxine) 1.04 ng/dL (0.71-1.85); Thyroid Stimulating Hormone 0.54 uIU/mL (0.32-4.0); Vitamin B12 926 pg/mL (200-900)
--- NOTE | 2023-02-28 08:33 | PC.NURSE ---
Pt signed 3 day notice up on 03-05. (thursday is holiday). , CANDACE, UR aware.
[2023-02-28] MEDS: Magnesium Oxide 400 MG TABLET PO (09:39)
[2023-02-28] MEDS: OXcarbazepine 300 MG TABLET 600 MG PO ×2 (09:39→20:07)
[2023-02-28] MEDS: Omeprazole 20 MG CAPSULE.DR PO ×2 (09:39→16:33)
[2023-02-28] MEDS: QUEtiapine Fumarate 100 MG TABLET PO ×2 (09:39→20:08)
[2023-02-28] MEDS: clonazePAM 0.5 MG TABLET PO ×3 (09:39→20:43)
[2023-02-28 09:45] VITALS: BP 130/66; PULSE 78; RESP 18; TEMP 36.4; O2SAT 98
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
[2023-02-28] MEDS: Divalproex Sodium Sprinkles 125 MG CAP.DR.SPR PO (12:08)
[2023-02-28] MEDS: Multivitamin TABLET 1 TAB PO (12:08)
[2023-02-28] MEDS: Lidocaine 4 % Patch ADH..PATCH 1 PATCH TRANSDERMA (12:52)
--- NOTE | 2023-02-28 12:55 | P.CONHOSP_ITS ---
History of Present Illness Data of Consult Service Date: 02/28/23 Requesting physician: Jeffy Wagner Primary Care Provider: Nelly Zamora NP HPI Reason for consult: medical H&P 42-year-old female with history of bipolar disorder, anxiety, GERD/Mixon's esophagus, mild intermittent asthma, and chronic low back pain s/p spinal fusion in 2018 admitted to Psychiatry with consult placed to hospitalist service for medical H and P. She is complaining of low back pain. Has no other complaints at this time. No radiation of the pain. Has chronic weakness in the left lower extremity secondary to her chronic issues with her back. No alcohol use, cigarette smoking, or illicit drug use. Review of Systems Review of Systems: General: No fevers, malaise, unintentional weight loss HEENT: No blurred vision, diplopia. No sore throat, nasal congestion, rhinorrhea, sinus pain, ear pain Cardiovascular: No chest pain, palpitations, or leg edema Respiratory: No shortness of breath, wheezing, cough GI: No abdominal pain, nausea, vomiting, diarrhea, constipation, melena, hematochezia : No dysuria, hematuria, increased urinary frequency, decreased urinary output MSK: No myalgia. +back pain Neuro: No headaches, paresthesias. +weakness LLE Skin: No rashes or lesions [facility] Medical History Asthma Mixon esophagus Chronic low back pain GERD (gastroesophageal reflux disease) History of migraine Surgical History H/O spinal fusion H/O tubal ligation Social History Household Members: Spouse and Family Housing: House Do you presently have visiting nurse or other home services: No Patient Tobacco Use Status: Former Tobacco user Tobacco use type: Cigarette Cigarette Packs Per Day: 1 Cigarettes Per Day: 20 Years Smoked: Since age 15 Use of substances other than those prescribed or required for medical reasons: No Substance Use Type: Marijuana Currently Displaying Signs/Symptoms of Drug Intoxication Withdrawal: No Have you been hit, kicked, punched, or otherwise hurt by someone within the past year? If so, by whom?: No Do you feel safe in your current relationship?: Yes Is there a partner from a previous relationship who is making you feel unsafe now?: No Are you made to feel afraid or neglected: No Spiritual Healthcare Practices: N/A [facility] Practices: N/A Cultural Healthcare Practices: N/A Advance Directives: No Advance Directives Information Provided: No Do you have thoughts of harming others: None Do you have a plan to hurt others: No Plan Recently lost weight without trying: No How much weight loss: Not applicable Eating poorly because of decreased appetite: No Nutrition screen score: 0 Nutrition Risks: No Nutritional Risk Patient : No : No Poor oral hygiene: No Meds Allergies Allergy/AdvReac Type Severity Reaction Status Date / Time sucralfate Allergy Vomiting Verified 01/20/23 08:43 Active Medications: Current Medications Acetaminophen (Acetaminophen 325 Mg Tablet) 650 mg PO Q6H PRN PRN Reason: Headache/Pain Mild Scale (1-3) Al Hydroxide/Mg Hydroxide (Magnesium Hydrox/Alum Hydrox 30 Ml Oral.Susp) 30 ml PO Q6H PRN PRN Reason: Heartburn/Nausea Albuterol Sulfate (Albuterol Sulfate 90 Mcg 8 Gm Inhaler) 2 puff INHALE RQ4H PRN PRN Reason: Shortness Of Breath Calcium Carbonate (Calcium Carbonate 500 Mg Tablet) 500 mg PO DAILY [facility] Last Admin: 02/28/23 12:08 Dose: 500 mg Clonazepam (Clonazepam 0.5 Mg Tablet) 0.5 mg PO TID PRN PRN Reason: Anxiety Divalproex Sodium (Divalproex Sodium Sprinkles 125 Mg ) 375 mg PO BEDTIME [facility] Divalproex Sodium (Divalproex Sodium Sprinkles 125 Mg Spr) 125 mg PO DAILY [facility] Famotidine (Famotidine 20 Mg Tablet) 40 mg PO BEDTIME [facility] Hydroxyzine HCl (Hydroxyzine Hcl 50 Mg Tablet) 50 mg PO Q6H PRN PRN Reason: Anxiety Ibuprofen (Ibuprofen 800 Mg Tablet) 800 mg PO TID PRN PRN Reason: Pain, Moderate(Pain Scale 4-6) Lidocaine (Lidocaine 4 % Patch Adh..Patch) 1 patch TRANSDERMA DAILY [facility]; Protocol Last Admin: 02/28/23 12:52 Dose: 1 patch Magnesium Hydroxide (Milk Of Magnesia 30 Ml Oral.Susp) 30 ml PO DAILY PRN PRN Reason: Constipation Magnesium Oxide (Magnesium Oxide 400 Mg Tablet) 400 mg PO DAILY [facility] Last Admin: 02/28/23 09:39 Dose: 400 mg Multivitamins/Vitamin C (Multivitamin Tablet) 1 tab PO DAILY [facility] Last Admin: 02/28/23 12:08 Dose: 1 tab Nicotine Polacrilex (Nicotine Polacrilex 2 Mg Gum) 4 mg BUCCAL Q2H PRN PRN Reason: Nicotine Cravings Omeprazole (Omeprazole 20 Mg Capsule.Dr) 20 mg PO BID@0630,1630 [facility] Last Admin: 02/28/23 09:39 Dose: 20 mg Oxcarbazepine (Oxcarbazepine 300 Mg Tablet) 600 mg PO BID [facility] Last Admin: 02/28/23 09:39 Dose: 600 mg Prazosin HCl (Prazosin Hcl 1 Mg Capsule) 3 mg PO BEDTIME [facility]; Protocol Quetiapine Fumarate (Quetiapine Fumarate 100 Mg Tablet) 100 mg PO BID [facility] Last Admin: 02/28/23 09:39 Dose: 100 mg Sumatriptan Succinate (Sumatriptan Succinate 50 Mg Tablet) 50 mg PO DAILY MRX1 PRN PRN Reason: Migraine Headache Tizanidine HCl (Tizanidine Hcl 4 Mg Tablet) 4 mg PO TID [facility] Trazodone HCl (Trazodone Hcl 50 Mg Tablet) 50 mg PO BEDTIME MRX1 PRN PRN Reason: Insomnia Home Medications Medication Instructions Recorded Confirmed Last Taken Type calcium 600 mg capsule 600 mg PO DAILY 12/21/20 02/27/23 01/13/22 06:30 History clonazepam 0.5 mg tablet 0.5 mg PO TID PRN Anxiety 12/21/20 02/27/23 01/12/23 07:00 History ibuprofen 800 mg tablet 800 mg PO TID PRN Pain 12/21/20 02/27/23 12/20/20 19:00 History oxcarbazepine 600 mg tablet 600 mg PO BID 12/21/20 02/27/23 01/12/23 07:00 History (Trileptal) quetiapine 100 mg tablet (Seroquel) 100 mg PO BID 12/21/20 02/27/23 01/12/23 07:00 History vitamin B complex 1 cap PO DAILY 12/21/20 02/27/23 01/12/23 07:00 History vitamin E 400 unit tablet 450 mg PO DAILY 12/21/20 02/27/23 01/12/23 07:00 History albuterol sulfate 90 mcg/actuation 2 puff inhalation Q4H PRN 01/13/22 02/27/23 Unknown History aerosol inhaler Shortness Of Breath divalproex 125 mg tablet,delayed 375 mg PO BEDTIME 01/13/22 02/27/23 01/11/23 19:30 History release (Depakote) famotidine 40 mg tablet 40 mg PO BEDTIME 01/13/22 02/27/23 01/11/23 19:30 His tory omeprazole 20 mg capsule,delayed 20 mg PO BID 01/13/22 02/27/23 01/12/23 07:00 History release sumatriptan succinate 50 mg tablet See Rx Instructions .Route 01/13/22 02/27/23 01/11/22 History .COMPLEX PRN Migraine Headache magnesium oxide 400 mg (241.3 mg 400 mg PO DAILY 01/12/23 02/27/23 01/12/23 07:00 History magnesium) tablet prazosin 1 mg capsule 3 mg PO BEDTIME 02/28/23 02/28/23 Unknown History Physical Exam Vital Signs and Narrative: Vital Signs: Last Vital Signs Temp 97.6 F 02/28/23 09:45 Pulse 78 02/28/23 09:45 Resp 18 02/28/23 09:45 BP 130/66 02/28/23 09:45 Pulse Ox 98 02/28/23 09:45 O2 Del Method Room Air 02/28/23 09:45 BMI result Body Mass Index 32.4 Constitutional - Awake and Alert, No apparent distress Eyes - PERRLA, EOMI Cardiovascular - S1S2, RRR, No edema Respiratory - Normal lung expansion, Normal respiratory effort, No respiratory distress, CTA bilaterally Gastrointestinal - NT / ND; +BS; No rebound or guarding - No CVA tenderness Extremities - no calf tenderness bilaterally, no swelling Musculoskeletal - Normal inspection, midline ttp at level of about L3-L5 and b/l paraspinal tenderness with palpable spasm Skin - Warm/Dry Neurological - Alert & oriented x3, CN II-XII in tact, 5/5 strength BUE and RLE, 4/5 strength LLE. 2+ patellar reflexes Psychological - Tearful, depressed mood Results Labs 02/28/23 07:15 Labs: Laboratory Results - last 24 hr 02/28/23 02/28/23 07:15 07:15 Anion Gap 10 L Estim Creat Clear Calc 114.9 Estimated GFR > 60 Fasting Glucose 107 H Estimat Average Glucose 100 Hemoglobin A1c % 5.1 Calcium 9.4 Total Bilirubin 0.5 Direct Bilirubin 0.2 AST 15 ALT 20 Alkaline Phosphatase 68 Total Protein 6.7 Albumin 4.2 Triglycerides 79 Cholesterol 185 LDL Cholesterol, Calc 112 HDL Cholesterol 58 Vitamin B12 926 H Folate 17.8 TSH 0.54 Free T4 1.04 Assessment and Plan (1) Routine medical exam: Status: Acute Plan 42-year-old female with history of bipolar disorder, anxiety, GERD/Mixon's esophagus, mild intermittent asthma, and chronic low back pain s/p spinal fusion in 2018 admitted to Psychiatry with consult placed to hospitalist service for medical H and P. #Mood disorder -plan per psychiatry #GERD/Mixon's esophagus -continue ppi #Mild intermittent asthma -albuterol prn #Chronic low back pain -Recommend allowing patient to sit on cushions/pillows given history -ibuprofen/tylenol prn. Can also use tizanidine prn -lidocaine patches. Thank you for allowing me to participate in this consult. Signing off at this time. Please do not hesitate to call for further questions. Time Spent With Patient Time: Total time managing care of this patient today ____ minutes.
[2023-02-28] MEDS: Ibuprofen 800 MG TABLET PO ×2 (14:01→20:43)
[2023-02-28] MEDS: TiZANidine HCL 4 MG TABLET PO ×2 (14:01→20:08)
[2023-02-28 19:25] VITALS: BP 116/69; PULSE 82; TEMP 36.6
[2023-02-28] MEDS: Prazosin HCL 1 MG CAPSULE 3 MG PO (20:07)
[2023-02-28] MEDS: Divalproex Sodium Sprinkles 125 MG CAP.DR.SPR 375 MG PO (20:07)
[2023-02-28] MEDS: Famotidine 20 MG TABLET 40 MG PO (20:08)
[2023-02-28] MEDS: Acetaminophen 325 MG TABLET 650 MG PO (20:43)
[2023-02-28] MEDS: traZODone HCL 50 MG TABLET PO (20:44)
[2023-03-01] MEDS: Omeprazole 20 MG CAPSULE.DR PO (06:22)
[2023-03-01] MEDS: Acetaminophen 325 MG TABLET 650 MG PO ×2 (06:38→13:29)
[2023-03-01] MEDS: Ibuprofen 800 MG TABLET PO ×2 (06:39→13:28)
[2023-03-01] MEDS: Lidocaine 4 % Patch ADH..PATCH 1 PATCH TRANSDERMA (07:41)
[2023-03-01] MEDS: OXcarbazepine 300 MG TABLET 600 MG PO (07:42)
[2023-03-01] MEDS: Multivitamin TABLET 1 TAB PO (07:42)
[2023-03-01] MEDS: Divalproex Sodium Sprinkles 125 MG CAP.DR.SPR PO (07:42)
[2023-03-01] MEDS: TiZANidine HCL 4 MG TABLET PO ×2 (07:42→14:43)
[2023-03-01] MEDS: QUEtiapine Fumarate 100 MG TABLET PO (07:42)
[2023-03-01] MEDS: Magnesium Oxide 400 MG TABLET PO (07:43)
[2023-03-01 07:51] VITALS: BP 122/74; PULSE 79; RESP 18; TEMP 36.3; O2SAT 98
--- NOTE | 2023-03-01 11:43 | P.DS_ITS ---
DS: Providers Provider Date of Service: 03/01/23 Date of admission: 02/27/23 21:13 Date of discharge: 03/01/23 Primary care physician: Nelly Zamora NP Admitting clinician: Valdemar Marina Attending physician on admission: Valdemar Marina Consults: 02/27/23 21:25 Consult to Hospitalist Routine Comment: Consulting Provider: Hospitalist Reason For Exam: OSH admission Attending physician on discharge: Valdemar Marina Discharging clinician: Valdemar Marina DS: Diagnosis Discharge Diagnosis (1) Post-traumatic stress disorder, chronic: Status: Acute (2) Bipolar 2 disorder, major depressive episode: Status: Acute (3) Generalized anxiety disorder: Status: Acute DS: Medications Discharge Medications Home Medications: Home Medications Medication Instructions Recorded Confirmed calcium 600 mg capsule 600 mg PO DAILY 12/21/20 02/27/23 clonazepam 0.5 mg tablet 0.5 mg PO TID PRN Anxiety 12/21/20 02/27/23 ibuprofen 800 mg tablet 800 mg PO TID PRN Pain 12/21/20 02/27/23 oxcarbazepine 600 mg tablet 600 mg PO BID 12/21/20 02/27/23 (Trileptal) quetiapine 100 mg tablet (Seroquel) 100 mg PO BID 12/21/20 02/27/23 vitamin B complex 1 cap PO DAILY 12/21/20 02/27/23 vitamin E 400 unit tablet 450 mg PO DAILY 12/21/20 02/27/23 albuterol sulfate 90 mcg/actuation 2 puff inhalation Q4H PRN 01/13/22 02/27/23 aerosol inhaler Shortness Of Breath divalproex 125 mg tablet,delayed 375 mg PO BEDTIME 01/13/22 02/27/23 release (Depakote) famotidine 40 mg tablet 40 mg PO BEDTIME 01/13/22 02/27/23 omeprazole 20 mg capsule,delayed 20 mg PO BID 01/13/22 02/27/23 release sumatriptan succinate 50 mg tablet See Rx Instructions .Route 01/13/22 02/27/23 .COMPLEX PRN Migraine Headache magnesium oxide 400 mg (241.3 mg 400 mg PO DAILY 01/12/23 02/27/23 magnesium) tablet prazosin 1 mg capsule 3 mg PO BEDTIME 02/28/23 02/28/23 Mental Status Exam Mental Status Exam Patient Appearance: Well Grooomed Level of Consciousness: Awake and Alert Patient Behavior: Appropriate Mood Description: Calm and Relaxed Affect Description: Calm, Appropriate and Relaxed Patient Cognition Impaired: No Ability to Follow Directions: Excellent Speech Pattern: Clear Memory Description: Intact Hallucinations: None Delusions: Not Present Thought Process: Intact Thought Content: positive for Intact Judgement: Good Data Data Completed and Pending Completed studies during hospitalization [Text1]: 02/28/23 02/28/23 07:15 07:15 Sodium 141 Potassium 4.8 Chloride 107 Carbon Dioxide 29 Anion Gap 10 L BUN 11 Creatinine 0.74 Estim Creat Clear Calc 114.9 Estimated GFR > 60 Fasting Glucose 107 H Estimat Average Glucose 100 Hemoglobin A1c % 5.1 Calcium 9.4 Total Bilirubin 0.5 Direct Bilirubin 0.2 AST 15 ALT 20 Alkaline Phosphatase 68 Total Protein 6.7 Albumin 4.2 Triglycerides 79 Cholesterol 185 LDL Cholesterol, Calc 112 HDL Cholesterol 58 Vitamin B12 926 H Folate 17.8 TSH 0.54 Free T4 1.04 DS: Summary Hospital Course Hospital Course: HPI Subjective Notes: Conditional Voluntary Medical Problems Affecting Mental Status: No Narrative: Patient is a 42 yo with a reported history of bipolar disorder and PTSD. Patient was transferred from [facility]. She presented to [facility] emergency room with increased SI and PTSD symptoms. She was focused on DC and was minimizing her SI. Patient reports I was stuck in a bad spot.. She reports she was at [facility] in January and that she had gone through several [facility] stints prior. She was there for about 3 weeks and then insurance was no longer covering her admission there and she had to be discharged. Patient reports that this last admission triggered a lot of PTSD symptoms and uncovered traumatic events she was trying to suppress. She reports flashbacks, increased anxiety, memories she had a hard time suppressing. She says that her fci partner was supposed to leave for a few days to a 4 wheeling event which meant she would have to stay at home alone. She was increasingly anxious about that prospect. She says she had SI but that I have had suicidal thoughts for a long time and I never acted on them. Per [facility] crisis, patient actually had a plan to OD on her medications. She talked to her and she was brought to the ED. She was deemed to be in need of inpt care and was transferred to [facility] [place] [place]. She is focused and perseverating on leaving saying that she wants to be with my safe people. Per [facility], patient has been increasingly depressed and having difficulty maintaining her responsibilities at home. Patient denying SI now. While at [facility] her Depakote was supposed to be increased however she continued on the same dose of 375 mg rather than increasing to 125 mg in AM and 375 mg HS as proposed because the last prescription didn't have those directions on them. Her PCP has historically prescribed her medications. Patient reports she contacted the PHP and has an appointment for an intake in March ( she says), and has a therapist Kim Vasquez who she plans on seeing twice a week. Past Psychiatric History: Inpt: M5 2014 PHP: 5-6 X Suicide attempts: none? no current psychiatric provider, has therapist.? PCP prescribes meds, with consultation through behavioral health provider at [facility]. Past medication trials: trileptal, seroquel, prazosin, latuda, lithium, d epakote, prozac (increased agitation/explosive) Patient was admitted on a CV and was put on 15 minute checks. She was initially distraught about being in the hospital. She was advocating for DC. Patient maintained she didn't go to [facility] for admission but rather to process her anxiety and traumatic experiences. She denied any suicidal intent. Patient settled on the unit and restarted her home medications. Her mental status improved. A meeting was held with her and her salvage determiner partner Dilshad who was very supportive. He reported patient ran out of her Seroquel prior to her admission which could have been responsible for her destabilization. We discussed a safety plan. Patient agrees to reach out to if she is feeling distressed with her thoughts and trauma or has SI. Adarsh is taking a week off from work and will be getting a locked medication box. Patient will see her therapist twice a week until she can start PHP. Patient and agree she will return to [facility] in case of emergency Patient appeared calm. Her son visited with her and they appeared to have a very good connection. She was future oriented. They were planning to see a movie together. Status at Discharge Cognitive/behavioral status at discharge: Calm and cooperative Functional status at discharge: independent ambulation Overall status at discharge: patient is back to baseline Time Spent with Patient Time attestation: Total time managing care of this patient today _35___ minutes. Time spent: Greater than 30 minutes Discharge Plan Discharge Anticipated Discharge Date/Time: 03/01/23 17:00 Patient Disposition: Home, Self-Care Discharge Diagnosis: PTSD Referrals: Kim Hays- therapist [Other] (Cassy will follow up, reports she sees therapist 2x per week.) Nelly Zamora, [facility] [Primary Care Provider] - 1 Week (Pt will follow up when offices open on Thursday.) Discharge Medications: Continued calcium 600 mg Capsule 600 mg PO DAILY ibuprofen 800 mg Tablet 800 mg PO TID PRN (Reason: Pain) Patient Comments: Patient stated she takes once a week. clonazepam 0.5 mg Tablet 0.5 mg PO TID PRN (Reason: Anxiety) quetiapine [Seroquel] 100 mg Tablet 100 mg PO BID vitamin E 400 unit Tablet 450 mg PO DAILY oxcarbazepine [Trileptal] 600 mg Tablet 600 mg PO BID vitamin B complex Capsule 1 cap PO DAILY famotidine 40 mg Tablet 40 mg PO BEDTIME sumatriptan succinate 50 mg Tablet See Rx Instructions .ROUTE .COMPLEX PRN (Reason: Migraine Headache) Rx Instructions: 1-2 tabs onset of migraine. May Repeat in 2 hours if ineffective. Do not exceed 4 doses per 24 hrs. Max 9 tabs in 30 days. divalproex [Depakote] 125 mg Tablet,Delayed Release (Dr/Ec) 375 mg PO BEDTIME Rx Instructions: Take 3 tabs at Bedtime. omeprazole 20 mg Capsule,Delayed Release(Dr/Ec) 20 mg PO BID albuterol sulfate 90 mcg/actuation Hfa Aerosol Inhaler 2 puff INHALATION Q4H PRN (Reason: Shortness Of Breath) magnesium oxide 400 mg (241.3 mg magnesium) tablet 400 mg PO DAILY prazosin 1 mg capsule 3 mg PO BEDTIME Discharge Orders: Discharge Order (Routine); Ordered 03/01/23 Ordered By: Valdemar Marina Diet: Advance to usual diet Activity on Discharge: As tolerated Stand Alone Forms: Patient Portal Discharge page, Community Support Care Plan Goals: Control of anxiety, depression, and trauma symptoms Health Concerns: PTSD Plan of Treatment: Resume medications. Continue therapy twice a week Referral to [facility] Assessment: bipolar disorder and PTSD
[2023-03-01] MEDS: clonazePAM 0.5 MG TABLET PO (13:29)
== END 2023-03-01 14:55 | disposition home or self-care (01) | DRG 885 ==
PROVIDERS: Psychiatry & Neurology Psychiatry; Admitting Provider Psychiatry & Neurology Psychiatry; PCP Nurse Practitioner Family; Visit Provider Psychiatry & Neurology Psychiatry
DX: F31.81 Bipolar II disorder (principal); R45.851 Suicidal ideations; K21.9 Gastro-esophageal reflux disease without esophagitis; K22.70 Barrett's esophagus without dysplasia; F43.12 Post-traumatic stress disorder, chronic; G89.28 Other chronic postprocedural pain; J45.20 Mild intermittent asthma, uncomplicated; F41.1 Generalized anxiety disorder; Z98.1 Arthrodesis status; Z87.891 Personal history of nicotine dependence; Z79.899 Other long term (current) drug therapy
CPT/HCPCS: 36415; 80053; 80061; 80076; 82607; 82746; 83036; 84439; 84443

== ENCOUNTER 2023-03-18 08:15 | Outpatient (RCR) | payer OTHER, SELFPAY ==
[2023-03-04 10:40] VITALS: BP 104/68; PULSE 76; TEMP 36.9
[2023-03-04 10:45] VITALS: BMI 74.5
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
--- NOTE | 2023-03-05 15:20 | HO.PHP ---
Client's case was reviewed and opened today in treatment team.
--- NOTE | 2023-03-05 16:18 | HO.PHP ---
PHP staff member followed up with Cassy after she made a concerning comment, stating she didn't quite have intent to act on her SI and plan. Cassy had mentioned that she is struggling and noted that when she was here last it opened up a lot about her father that she has not processed before. Cassy expressed that her plan was to take medication and pass in her sleep. Cassy disclosed that her has her medication locked up. Cassy mentioned she has no intent. Cassy expressed that she knows she needs the support and would like to try doing this on her own and not through at this time. Cassy talked about how she recently told her daughter to go live with her father because she cannot support her daughter the way her daughter wants to be supported at this time. Cassy also talked about her son observing her last week engaging in self-harming behaviors of hitting herself. Cassy feels as though her children don't need her. PHP staff reminded her that her children never said that and that a child is always going to need there mother. Cassy said she didn't have her mother. PHP staff said but she still wants her mother. Cassy agreed. PHP staff acknowledged that at this time she is struggling and may not be able to be there for her children in the way she would like but she is trying. Cassy was receptive. Cassy also talked about how she has no friends now because her best friend told her other friend that she was hospitalized and it upset her. PHP staff asked Cassy if she was able to look at it in the way that her friend was trying to support her and tell her other friend that they need to be there for her. Cassy said they could have been. Cassy talked about how she often pushes people out of her life and how she is attempting to do so with her fiance due to her feeling as though she is a burden. PHP staff encouraged Cassy during this stay to focus on developing healthy coping skills and tools to manage those feelings opposed to processing. PHP staff suggested she processes the trauma with her therapist. Cassy agreed. PHP staff explored if seeing her therapist twice a week was helpful. Cassy disclosed that they only saw each other 3 times and they never did 2 times a week. [facility] staff was receptive and encouraged her when she leaves the program to stay consistent with outside supports. Cassy was receptive. PHP checked for safety again, in which there were no safety concerns presented.
--- NOTE | 2023-03-09 14:40 | HO.PHP ---
After [facility] staff member reviewed Cassy's treatment plan, Cassy became emotional. [facility] staff explored with Cassy what was occurring. Cassy talked about her struggles with her daughter not returning to the home setting. [facility] staff provided Cassy with suggestions around how to communicate with her daughter, where the conversation is surrounding her daughters feelings opposed to her feelings, since it appeared her daughter was angry with her and it was more then what the situation was that her daughter stated. Cassy agrees that the anger is coming from other things as well. PHP staff suggested that she reaches out to her daughter saying, when she is ready to talk, she is there for her and always will be. Cassy was receptive. Cassy also talked about the trauma aspect and how she focuses on the negative. [facility] staff encouraged her if she writes something negative to reframe that thought into a positive. Cassy stated she would try. [facility] staff also encouraged Cassy to further process her trauma with her therapist so that she is able to get to a point of acknowledging this is apart of her story in life and learn to manage/cope with those feelings. Cassy was receptive. Cassy stated she wanted to go home because she no longer wants to talk today. PHP staff provided Cassy with more support, in which she was able to regulate and return to groups.
--- NOTE | 2023-03-11 11:08 | P.PNPSP_ITS ---
Subjective Subjective Date of Service: 03/11/23 Reason For Visit: depression Medical Problems Affecting Mental Status: No Interim History: Increased anxiety, unsure if increase in klonopin has been helpful. States I feel like I am on a roller coaster daily of mixed feelings and guilt . No SI reported, no safety concerns. Medication Compliance: Yes Side effects from medications: No Attending Groups: Yes Review of Systems Acute medical concerns: No Medical Review of Systems: unchanged Review of Systems Review of Systems Yes all other systems are reviewed and are negative Constitutional: Reports no additional constitutional complaints Mental Status Exam Mental Status Exam Narrative: Tearful, anxious Patient Appearance: Well Grooomed Patient Orientation: Person, Place, Time and Situation Level of Consciousness: Appropriate Patient Behavior: Appropriate, Cooperative and Good Eye Contact Mood Description: Depressed and Anxious Affect Description: Depressed and Anxious Patient Cognition Impaired: No Ability to Follow Directions: Excellent Speech Pattern: Clear Memory Description: Intact Hallucinations: None Delusions: Not Present Thought Process: Intact Thought Content: positive for Intact Depressive Symptoms: Increased Anxiety, Difficulty Sleeping, Loss of Int. in Activity, Hopelessness, Isolating-Friends/Family, Feelings of Guilt, Unhappiness, Low Self Esteem and Difficulty Concentrating Judgement: Fair Diagnostics Vital Signs (24Hr): BMI result Body Mass Index 74.5 Assessment & Plan Assessment & Plan (1) Post-traumatic stress disorder, chronic: Status: Acute Code(s): F43.12 - Post-traumatic stress disorder, chronic Assessment and Plan: Increased anxiety, unsure if increase in klonopin has been helpful. Has been taking other medications as prescribed. States I feel like I am on a roller coaster daily of mixed feelings and guilt . Multiple stressors currently. She had asked her daughter to leave recently, daughter has been staying with her father. She found out today her daughter is coming home after school. This is causing her great distress, as she would prefer to sit down and discuss the issues prior to having her daughter come back into the home. She is taking her younger son today for a new therapy assessment. She states that her will be with her, and that that causes her guilt, she feels as if she cannot handle parenting responsibilities well. She also states that all of her son's problems are her fault. No SI reported, no safety concerns. Patient describes feeling overwhelmed. Discussed stressors, mindfulness, focusing on realistic expectations of day, tasks that she is able to complete. Discussed continuing with increased dose of clonazepam at this time. She was in agreement with this. (2) Bipolar 2 disorder, major depressive episode: Status: Acute Code(s): F31.81 - Bipolar II disorder (3) Generalized anxiety disorder: Status: Acute Code(s): F41.1 - Generalized anxiety disorder Patient educated on: diagnosis, medication risk/benefits and therapeutic strategies Informed Consent: understands Reason for contiued partial hosp. stay Substantial Risk for: harm to self, inability to function and rapid decompensation Certification I certify that partial hospital treatment is medically necessary due to the symptoms and problems resulting from the patient's mental illness and the failure to treat the patient at the partial hospital level of care would likely result in the patient requiring inpatient psychiatric care which could not be prevented at a less intensive level of care. Total time managing care of this patient today __20__ minutes. Discharge Plan Discharge Attending provider: Sam Lipscomb Medications: New clonazepam 0.5 mg tablet See Rx Instructions .ROUTE .COMPLEX Qty: 60 0RF Rx Instructions: Take one tab (0.5 mg) orally scheduled three times daily, and take one tab (0.5 mg) once daily as needed for breakthrough anxiety symptoms. Discontinued clonazepam 0.5 mg Tablet 0.5 mg PO TID PRN (Reason: Anxiety) No Action calcium 600 mg Capsule 600 mg PO DAILY ibuprofen 800 mg Tablet 800 mg PO TID PRN (Reason: Pain) Patient Comments: Patient stated she takes once a week. quetiapine [Seroquel] 100 mg Tablet 100 mg PO BID vitamin E 400 unit Tablet 450 mg PO DAILY oxcarbazepine [Trileptal] 600 mg Tablet 600 mg PO BID vitamin B complex Capsule 1 cap PO DAILY famotidine 40 mg Tablet 40 mg PO BEDTIME sumatriptan succinate 50 mg Tablet See Rx Instructions .ROUTE .COMPLEX PRN (Reason: Migraine Headache) Rx Instructions: 1-2 tabs onset of migraine. May Repeat in 2 hours if ineffective. Do not exceed 4 doses per 24 hrs. Max 9 tabs in 30 days. divalproex [Depakote] 125 mg Tablet,Delayed Release (Dr/Ec) 375 mg PO BEDTIME Rx Instructions: Take 3 tabs at Bedtime. omeprazole 20 mg Capsule,Delayed Release(Dr/Ec) 20 mg PO BID albuterol sulfate 90 mcg/actuation Hfa Aerosol Inhaler 2 puff INHALATION Q4H PRN (Reason: Shortness Of Breath) magnesium oxide 400 mg (241.3 mg magnesium) tablet 400 mg PO DAILY prazosin 1 mg capsule 4 mg PO BEDTIME Patient Comments: Patient stated she is taking 4 mg at HS and has been taking this since she was at [facility] last time. Pham Sparks CNP is aware. divalproex 125 mg Capsule, Delayed Rel Sprinkle 125 mg PO DAILY Qty: 14 0RF
--- NOTE | 2023-03-11 16:09 | HO.PHP ---
Cassy came into the [facility] staff members office crying during her lunch period. Cassy informed the staff member that she spoke to her daughters father to see if he would be able to keep her one more night because she has not had a conversation with her in regards to why she left the house and she has a meeting for her son regarding mental health. Cassy voiced that she had received a message from her daughter saying you're just like your mother. Cassy again started to question her abilities as a parent and if she is presenting as her mother. [facility] staff reminded Cassy that we have processed this in group and that her setting a boundary is different then abandoning her and she has been reaching out to her daughter daily. [facility] staff stated that her daughter is feeling hurt right now and it appears she was finding a way to say something that was hurtful back to express how she is feeling. Cassy agreed and asked what she should say. [facility] staff provided Cassy with verbal prompts of what she could say to her daughter. Cassy was able to regulate and then began talking about the meeting for her son ahsan and how she gave him her mental health problems. [facility] staff was receptive and reminded Cassy of the stressors he has been experiencing that has been causing him to struggle with his mental health. Cassy was receptive and said it is from the bullying. [facility] staff voiced that she doesn't have control over those things and can only help support her son. Cassy was receptive and was able to regulate to return to group 4.
--- NOTE | 2023-03-13 13:57 | HO.PHP ---
[facility] staff contacted Cassy's OP therapist to engage in after care planning. Cassy's OP therapist disclosed that she is going to be meeting with her twice a week. Cassy's OP therapist informed the clinician of her next scheduled dates which are Friday, March 17, 2023 at 9:30 AM and March, at 9:30 AM.
--- NOTE | 2023-03-18 10:04 | P.PNPSP_ITS ---
Subjective Subjective Date of Service: 03/18/23 Reason For Visit: depression Interim History: Less depressed, less mood lability. No SI, no safety concerns. Has an appointment with her provider scheduled for March 26. Her outpatient therapy will be twice a week, starting tomorrow. Medication Compliance: Yes Side effects from medications: No Attending Groups: Yes Review of Systems Acute medical concerns: No Medical Review of Systems: unchanged Review of Systems Review of Systems Yes all other systems are reviewed and are negative Constitutional: Reports no additional constitutional complaints Mental Status Exam Mental Status Exam Narrative: NAD Patient Appearance: Well Grooomed Patient Orientation: Person, Place, Time and Situation Level of Consciousness: Appropriate Patient Behavior: Appropriate, Cooperative and Good Eye Contact Mood Description: Appropriate Affect Description: Appropriate Patient Cognition Impaired: No Ability to Follow Directions: Excellent Speech Pattern: Clear Memory Description: Intact Hallucinations: None Delusions: Not Present Thought Process: Intact Thought Content: positive for Intact Judgement: Fair Diagnostics Vital Signs (24Hr): BMI result Body Mass Index 74.5 Assessment & Plan Assessment & Plan (1) Bipolar 2 disorder, major depressive episode: Status: Acute Code(s): F31.81 - Bipolar II disorder Assessment and Plan: Less depressed, less mood lability. satisfied with current medication regimen. No SI, no safety concerns. Reviewed current medication prescriptions, will discuss clonazepam dose with her outpatient provider when she sees her. Has an appointment with her provider scheduled for March 26. Her outpatient therapy will be twice a week, starting tomorrow. Feels stable for discharge from [facility] at this time. (2) Generalized anxiety disorder: Status: Acute Code(s): F41.1 - Generalized anxiety disorder (3) Post-traumatic stress disorder, chronic: Status: Acute Code(s): F43.12 - Post-traumatic stress disorder, chronic Plan 1. Patient appears stable for discharge from [facility] at this time. 2. Patient to follow-up with outpatient providers going forward. Patient educated on: diagnosis, medication risk/benefits and therapeutic strategies Informed Consent: understands Reason for contiued partial hosp. stay Substantial Risk for: stable for discharge Certification I certify that partial hospital treatment is medically necessary due to the symptoms and problems resulting from the patient's mental illness and the failure to treat the patient at the partial hospital level of care would likely result in the patient requiring inpatient psychiatric care which could not be prevented at a less intensive level of care. Total time managing care of this patient today _20___ minutes. Discharge Plan Discharge Attending provider: Sam Lipscomb Medications: New clonazepam 0.5 mg tablet See Rx Instructions .ROUTE .COMPLEX Qty: 60 0RF Rx Instructions: Take one tab (0.5 mg) orally scheduled three times daily, and take one tab (0.5 mg) once daily as needed for breakthrough anxiety symptoms. divalproex [Depakote Sprinkles] 125 mg capsule, delayed rel sprinkle 125 mg PO DAILY Qty: 30 0RF Rx Instructions: take one daily in am Discontinued clonazepam 0.5 mg Tablet 0.5 mg PO TID PRN (Reason: Anxiety) No Action calcium 600 mg Capsule 600 mg PO DAILY ibuprofen 800 mg Tablet 800 mg PO TID PRN (Reason: Pain) Patient Comments: Patient stated she takes once a week. quetiapine [Seroquel] 100 mg Tablet 100 mg PO BID vitamin E 400 unit Tablet 450 mg PO DAILY oxcarbazepine [Trileptal] 600 mg Tablet 600 mg PO BID vitamin B complex Capsule 1 cap PO DAILY famotidine 40 mg Tablet 40 mg PO BEDTIME sumatriptan succinate 50 mg Tablet See Rx Instructions .ROUTE .COMPLEX PRN (Reason: Migraine Headache) Rx Instructions: 1-2 tabs onset of migraine. May Repeat in 2 hours if ineffective. Do not exceed 4 doses per 24 hrs. Max 9 tabs in 30 days. divalproex [Depakote] 125 mg Tablet,Delayed Release (Dr/Ec) 375 mg PO BEDTIME Rx Instructions: Take 3 tabs at Bedtime. omeprazole 20 mg Capsule,Delayed Release(Dr/Ec) 20 mg PO BID albuterol sulfate 90 mcg/actuation Hfa Aerosol Inhaler 2 puff INHALATION Q4H PRN (Reason: Shortness Of Breath) magnesium oxide 400 mg (241.3 mg magnesium) tablet 400 mg PO DAILY prazosin 1 mg capsule 4 mg PO BEDTIME Patient Comments: Patient stated she is taking 4 mg at HS and has been taking this since she was at [facility] last time. Pham Sparks CNP is aware. divalproex 125 mg Capsule, Delayed Rel Sprinkle 125 mg PO DAILY Qty: 14 0RF Stand Alone Forms: Patient Portal Discharge page Patient Education: Bipolar Disorder (DC), Post Traumatic Stress Disorder (DC)
--- NOTE | 2023-03-25 08:51 | PC.NURSE ---
I spoke to Cassy. She is working with her PCP who is her prescriber regarding her increase in Clonazepam dose. She reports she has a partial fill from the pharmacy and has an appointment with her prescriber tomorrow.
== END 2023-03-18 23:59 | disposition home or self-care (01) ==
LOC: HO.PHPA 08:15
PROVIDERS: Visit Provider Psychiatry & Neurology Psychiatry
DX: F31.81 Bipolar II disorder (principal); F43.12 Post-traumatic stress disorder, chronic; F41.1 Generalized anxiety disorder; Z79.899 Other long term (current) drug therapy
CPT/HCPCS: 90791; 90853